=== PATIENT | female | born 1960 | race African-American/Black ===

== ENCOUNTER 2017-08-04 19:03 | Inpatient (IN) | payer OTHER ==
[~2017-08-04] VITALS: Ht 162.6 cm; Wt 85.7 kg
[~2017-08-04 19:03] MED LIST: ACETAMINOPHEN-1 EAC1 PO; ADVAIR HFA 230M12 GM INH; ADVAIRDISKUS; ALBUTEROL2.5 MG/0.1 IH; AZITHROMYCIN 2250 MG PO; BACTRIM DS TAB1 EACH PO; BENADRYL25 MG PO; MEDROLDOSEPACK PO; NAPROSYN500 MG PO; NORCO 7.5-3251 EACH PO; PERCOCET 5-3251 EACH PO; PHENERGAN-CODE120 ML PO; PREDNISONE 20 M20 M1 PO; PREDNISONE50 MG PO; VENTOLIN HFA 1818 GM INH; ZPAK PO
[2017-08-04 19:09] VITALS: BP 109/52
[2017-08-04] MEDS ORDERED: ONDANSETRON HCL4 M2 PO (19:14)
[2017-08-04 19:30] LABS: URINE BILIRUBIN NEGATIVE (Negative); URINE BLOOD TRACE (Negative); URINE CLARITY SL CLOUDY; URINE COLOR YELLOW; URINE GLUCOSE-RANDOM NEGATIVE (Negative); URINE KETONES TRACE (Negative); URINE LEUKOCYTES-REFLEX NEGATIVE (Negative); URINE NITRITE-REFLEX NEGATIVE (Negative); URINE PROTEIN TRACE (Negative); URINE SPECIFIC GRAVITY 1.025 (1.005-1.030); URINE UROBILINOGEN 0.2 E.U./dl (0.2-1.0)
[2017-08-04 19:37] LABS: BACTERIA-REFLEX >30 Many /HPF (None Seen); CASTS None Seen /LPF (None Seen); CRYSTALS None Seen /LPF (None Seen); MUCUS >6 Heavy strn/LPF (None Seen); SQUAMOUS >10 Many /LPF (0-3); URINE WBC-REFLEX 0-5 Rare /HPF (0-5)
[2017-08-04 19:38] LABS: URINE RBC 0-2 Rare /HPF (0-2)
[2017-08-04 19:43] LABS: HEMOGLOBIN 9.3 gm/dL (12.0-15.0); MPV 8.3 fl. (7.2-11.1); RBC 2.64 mil/uL (4.20-5.00)
[2017-08-04 19:45] LABS: HEMATOCRIT 26.4 % (37.0-47.0); MCH 35.2 pg (26.0-34.0); MCHC 35.1 g/dL (28.0-37.0); MCV 100.3 fL (80.0-100.0); NUCLEATED RBCS 0 /100WBC; RDW-CV 19.5 % (10.5-14.5)
[2017-08-04 19:53] LABS: WBC 0.5 thou/uL (4.0-11.0)
[2017-08-04 19:54] LABS: PLATELET COUNT* 17 thou/uL (150-400)
[2017-08-04 19:58] LABS: INFLUENZA A ANTIGEN None Detected (None Detect); INFLUENZA B ANTIGEN None Detected (None Detect)
[2017-08-04 20:02] LABS: CALCIUM 8.8 mg/dL (8.5-10.1); CREATININE 0.8 mg/dL (0.6-1.3); POTASSIUM 3.8 mmol/L (3.5-5.1)
[2017-08-04 20:07] LABS: ALBUMIN 3.7 g/dL (3.4-5.0); TOTAL BILIRUBIN 0.8 mg/dL (<0.1-1.0); TOTAL PROTEIN 6.8 g/dL (6.4-8.2)
[2017-08-04 20:37] LABS: ABSOLUTE LYMPHOCYTES 0.4 thou/uL (0.8-5.3); ABSOLUTE MONOCYTES 0.1 thou/uL (0.0-1.2); ATYPICAL LYMPHS 2 %
[2017-08-04 20:39] LABS: ANISOCYTOSIS 1+; LARGE PLATELETS RARE; PLATELET ESTIMATE DECREASED
[2017-08-04 22:02] VITALS: BP 103/57
[2017-08-04 22:10] VITALS: BP 110/55
[2017-08-05 03:31] VITALS: BP 113/52
[2017-08-05 08:00] VITALS: BP 132/64
[2017-08-05 16:51] VITALS: BP 111/63
[2017-08-05 23:40] VITALS: BP 110/62
[2017-08-06 07:30] VITALS: BP 137/63
--- NOTE | 2017-08-06 08:54 | CON ---
[address] [address] CONSULTATION Name: KALPESHJOHANNA E Room: [address] IN M.R.#: [id number] Admission: 08/04/17 Attend Phys: Lucien Eastman MD Discharge: Date of : 56 Report #: [id number] THIS REPORT FOR: //name// CC: Lucien Rivera DATE OF SERVICE: 08/05/2017 INFECTIOUS DISEASE CONSULTATION ATTENDING PHYSICIAN: Lucien Eastman M.D. REASON FOR EVALUATION: Febrile neutropenia. HISTORY OF PRESENT ILLNESS: Chart reviewed, the patient examined. This is a 56-year-old woman with history of breast cancer, undergoing neoadjuvant chemotherapy in a clinical trial, who presented with fevers associated with cough. Did have generalized arthralgias and myalgias, which she attributed to the Neulasta. Denies significant pulmonary or GI related complaints. On evaluation, was found to have neutropenia with ANC of 0.0. Blood cultures collected yesterday are negative thus far. Urine culture in the setting of pretty unremarkable. Urinalysis was otherwise unremarkable as was chest x-ray. She does have indwelling central venous catheter, left chest, just in the last few months. Influenza antigen was negative. She was started empirically on broad spectrum antimicrobials, specifically vancomycin, piperacillin and tazobactam. At present, she does have some chills. She is not encephalopathic. ALLERGIES: HYDROCODONE AND ASPIRIN. MEDICATIONS: Include filgrastim, vancomycin, albuterol and Zosyn. PAST MEDICAL HISTORY: As described above, the breast cancer and history of asthma. SOCIAL HISTORY: Nonsmoker, no ethanol. FAMILY HISTORY: Noncontributory. REVIEW OF SYSTEMS: As above. PHYSICAL EXAMINATION: GENERAL: She is alert, cooperative, in moderate distress secondary to chills, but appears fairly well nourished actually. VITAL SIGNS: Temperature 99.7, pulse 114, respirations 16 and blood pressure 132/64. SKIN: Warm, dry, [place] [address] CONSULTATION Name: RHONDA POSEYRonal Cabrera Room: [address]#: [id number] Admission: 08/04/17 Attend Phys: Lucien Eastman MD Discharge: Date of : 56 Report #: [id number] HEENT: Unremarkable. NECK: Supple. LUNGS: Generally clear to auscultation. HEART: Regular, tachycardic. I do not appreciate a murmur. There is evidence of a left tunneled catheter in place. ABDOMEN: Soft, nontender and nondistended. There is no organomegaly appreciated. GENITOURINARY: Deferred. RECTAL: Deferred. LABORATORY DATA: Blood cultures sterile thus far. CBC: White count of 0.5, total ANC of 0.0, H and H 9.3 and 26.4 and platelets of 17,000. Electrolytes: Sodium 134, potassium 3.8, chloride 98, bicarbonate is 28, BUN and creatinine 14 and 0.8 and glucose of 133. LFTs unremarkable. Albumin of 3.7. Total protein 6.8. Estimated GFR of 89. Lactic acid 0.7. Influenza antigen for A and B negative. Chest x-ray, heart size is normal. There is no acute process. Lungs are clear. ASSESSMENT AND PLAN: Febrile neutropenia in a patient with ongoing chemotherapy for breast cancer. We will continue the empiric antimicrobial therapy. I would be concerned about central line-related infection. Really, no other source of pyogenic foci that I can appreciate. We will wait and see how she does clinically. Ideally, the filgrastim will further activate the bone marrow to increase the overall white count. We will monitor expectantly. <ELECTRONICALLY SIGNED> By: Luis Newsome MD 08/06/17 [id number] Newsome MD /nt
[2017-08-06 15:35] LABS: BASOPHILS 0.7 %; EOSINOPHILS 0.7 %; HEMATOCRIT 21.4 % (37.0-47.0); HEMOGLOBIN 7.5 gm/dL (12.0-15.0); MCH 35.4 pg (26.0-34.0); MCHC 34.9 g/dL (28.0-37.0); MCV 101.2 fL (80.0-100.0); MONOCYTES 15.1 %; MPV 8.4 fl. (7.2-11.1); NUCLEATED RBCS 0 /100WBC; POLYS 52.5 %; RBC 2.12 mil/uL (4.20-5.00); RDW-CV 19.4 % (10.5-14.5)
[2017-08-06 15:42] LABS: ABSOLUTE LYMPHOCYTES 0.4 thou/uL (0.8-5.3); ABSOLUTE MONOCYTES 0.2 thou/uL (0.0-1.2); ABSOLUTE NEUTROPHILS 0.7 thou/uL (1.6-8.1)
[2017-08-06 15:43] LABS: PLATELET COUNT* 12 thou/uL (150-400); WBC 1.4 thou/uL (4.0-11.0)
[2017-08-06 15:46] LABS: CALCIUM 8.1 mg/dL (8.5-10.1); CREATININE 0.6 mg/dL (0.6-1.3); POTASSIUM 3.7 mmol/L (3.5-5.1)
[2017-08-06 16:09] VITALS: BP 120/58
[2017-08-06 20:40] VITALS: BP 131/64
[2017-08-07 00:13] VITALS: BP 113/60
[2017-08-07 06:17] LABS: MCH 35.3 pg (26.0-34.0); MCHC 34.5 g/dL (28.0-37.0); MCV 102.3 fL (80.0-100.0); MPV 8.4 fl. (7.2-11.1); RBC 1.7 mil/uL (4.20-5.00); RDW-CV 19.2 % (10.5-14.5); WBC 2.5 thou/uL (4.0-11.0)
[2017-08-07 06:20] LABS: HEMATOCRIT 17.4 % (37.0-47.0)
[2017-08-07 06:27] LABS: CALCIUM 7.9 mg/dL (8.5-10.1); CREATININE 0.6 mg/dL (0.6-1.3); POTASSIUM 3.4 mmol/L (3.5-5.1)
[2017-08-07 07:41] LABS: HEMATOCRIT 21.1 % (37.0-47.0); HEMOGLOBIN 7.4 gm/dL (12.0-15.0); MCH 35.4 pg (26.0-34.0); MPV 8.3 fl. (7.2-11.1); RBC 2.08 mil/uL (4.20-5.00); RDW-CV 19.3 % (10.5-14.5); WBC 2.5 thou/uL (4.0-11.0)
[2017-08-07 08:15] VITALS: BP 119/55
[2017-08-07 13:18] VITALS: BP 141/53; BP 152/67
[2017-08-07] MEDS ORDERED: LEVAQUIN 500 M500 M1 PO (14:42)
[2017-08-07 16:09] VITALS: BP 120/63
[2017-08-07 16:27] VITALS: BP 120/63
[2017-08-07 18:00] VITALS: BP 119/55
[2017-10-20] MEDS ORDERED: ACETAMINOPHEN-1 EAC1 PO (15:44)
== END 2017-08-07 17:00 | disposition home or self-care (01) | DRG 808 ==
LOC: M.ERS 19:03 → M.TBA-ER 21:28 → M.ORTHSURG 21:50 → M.TBA-ER 21:50 → M.ORTHSURG 22:02
PROVIDERS: Internal Medicine; Physician Assistant; ADMIT Internal Medicine
PROC: 30233R1 Transfusion of Nonautologous Platelets into Peripheral Vein, Percutaneous Approach (ICD-10-PCS; principal; 2017-08-05)
DX: D70.9 Neutropenia, unspecified (principal); J18.9 Pneumonia, unspecified organism; C50.911 Malignant neoplasm of unspecified site of right female breast; J45.909 Unspecified asthma, uncomplicated; F17.210 Nicotine dependence, cigarettes, uncomplicated; R50.81 Fever presenting with conditions classified elsewhere; K12.30 Oral mucositis (ulcerative), unspecified; D69.59 Other secondary thrombocytopenia; T45.1X5A Adverse effect of antineoplastic and immunosuppressive drugs, initial encounter; Y92.89 Other specified places as the place of occurrence of the external cause; Z88.6 Allergy status to analgesic agent; Z80.3 Family history of malignant neoplasm of breast

== ENCOUNTER → 2018-02-19 | Outpatient (CLI) | payer OTHER ==
[~2018-02-19] MED LIST changes: +LEVAQUIN 500 M500 M1 PO; +ONDANSETRON HCL4 M2 PO
== END ==
LOC: M.CT 08:24
DX: K76.0 Fatty (change of) liver, not elsewhere classified (principal); C50.919 Malignant neoplasm of unspecified site of unspecified female breast; R00.0 Tachycardia, unspecified; Z17.1 Estrogen receptor negative status [ER-]

== ENCOUNTER → 2018-02-26 | Outpatient (CLI) | payer OTHER | LOC: M.RAD 16:56 | DX: M17.11 Unilateral primary osteoarthritis, right knee (principal); M25.461 Effusion, right knee ==

== ENCOUNTER → 2018-03-12 | Outpatient (CLI) | payer OTHER | LOC: M.MRI 16:59 | DX: S83.241A Other tear of medial meniscus, current injury, right knee, initial encounter (principal); S83.281A Other tear of lateral meniscus, current injury, right knee, initial encounter; C50.911 Malignant neoplasm of unspecified site of right female breast; J45.909 Unspecified asthma, uncomplicated; X58.XXXA Exposure to other specified factors, initial encounter; Y93.89 Activity, other specified; Y92.89 Other specified places as the place of occurrence of the external cause; Y99.8 Other external cause status; Z88.6 Allergy status to analgesic agent ==